=== PATIENT | male | born 1955 ===

== ENCOUNTER → 2021-02-01 | Outpatient (CLI) | payer OTHER | END | disposition home or self-care (01) | LOC: PPH VACUNA | DX: Z23 Encounter for immunization (principal) ==

== ENCOUNTER → 2021-02-22 | Outpatient (CLI) | payer OTHER | END | disposition home or self-care (01) | LOC: PPH VACUNA | DX: Z23 Encounter for immunization (principal) ==

== ENCOUNTER 2021-12-25 09:06 | Outpatient (CLI) | payer OTHER | END 2021-12-25 09:12 | disposition home or self-care (01) | LOC: RAD 09:06 | DX: R55 Syncope and collapse (principal) ==